=== PATIENT | female | born 2000 | race Two or more races ===

== ENCOUNTER 2020-08-03 09:47 | Emergency (ER) | payer SELFPAY ==
[~2020-08-03] VITALS: Ht 160 cm; Wt 60.0 kg
[~2020-08-03 09:47] MED LIST: DOCU-109 PO; IBUP-1060 PO; OXYC1TAB15 PO
[2020-08-03 10:15] VITALS: BP 119/55
[2020-08-03] MEDS ORDERED: IV NORMAL SALINE 1000ML BAG 1,000 ML IV SCH (12:30)
--- NOTE | 2020-08-03 12:40 | PHYS DOC ---
Past Medical History Past Medical History: No Pertinent History Past Surgical History: Smoking Status: Never Smoker Alcohol Use: Rarely General Adult EDM: Chief Complaint: RIB PAIN HPI: HPI: Patient is a 19 year old female who presents with left sided upper under the breast pain that is sharp and comes with breathing. She states sometimes it comes with movement. She denies injury. She denies shortness of breath at this time. She rates her pain a 7 out of 10. She states that she took pain medicine from her that she recently had in May and it did not help. This has been going on for the last couple of days. She is Welsh-speaking and a bilingual interpreter phone was used. She is on control. Patient denies shortness of breath, dizziness, headache, recent illness, cough, injury, abdominal pain, nausea, vomiting, diarrhea, fever, urinary symptoms, back pain. Review of Systems: Review of Systems: Constitutional: Denies fever or chills. [] Eyes: Denies change in visual acuity. [] HENT: Denies nasal congestion or sore throat. [] Respiratory: Denies cough or shortness of breath. [] Cardiovascular: +Left chest pain or denies edema. [] GI: Denies abdominal pain, nausea, vomiting, bloody stools or diarrhea. [] : Denies dysuria. [] Musculoskeletal: Denies back pain or joint pain. + Left ribs [] Integument: Denies rash. [] Neurologic: Denies headache, focal weakness or sensory changes. [] Endocrine: Denies polyuria or polydipsia. [] Lymphatic: Denies swollen glands. [] Psychiatric: Denies depression or anxiety. [] Heart Score: C/O Chest Pain: Yes HEART Score for Chest Pain: HEART Score for Chest Pain Response (Comments) Value History Slighlty/Non-Suspicious 0 ECG Normal 0 Age < 45 0 Risk Factors No Risk Factors 0 Troponin < Normal Limit 0 Total 0 Risk Factors: Risk Factors: DM, Current or recent (<one month) smoker, HTN, HLP, family history of CAD, obesity. Risk Scores: Score 0 - 3: 2.5% MACE over next 6 weeks - Discharge Home Score 4 - 6: 20.3% MACE over next 6 weeks - Admit for Clinical Observation Score 7 - 10: 72.7% MACE over next 6 weeks - Early Invasive Strategies Current Medications: Current Medications Medications (Trade) Dose Ordered Sig/Mari Start Time Stop Time Status Last Admin Dose Admin Ketorolac Tromethamine (Toradol 30mg Vial) 30 mg 1X ONCE 08/03/20 12:45 08/03/20 12:46 Sodium Chloride 1,000 ml @ 1,000 mls/hr Q1H 08/03/20 12:30 08/03/20 13:29 Allergies: Allergies: Allergies Coded Allergies Type Severity Reaction Last Updated Verified No Known Drug Allergies 05/18/20 No Physical Exam: PE: Constitutional: Well developed, well nourished, no acute distress, non-toxic appearance. [] HENT: Normocephalic, atraumatic, bilateral external ears normal, oropharynx moist, no oral exudates, nose normal. [] Eyes: PERRLA, EOMI, conjunctiva normal, no discharge. [] Neck: Normal range of motion, no tenderness, supple, no stridor. [] Cardiovascular:Heart rate regular rhythm, no murmur [] Lungs & Thorax: Bilateral breath sounds clear to auscultation. Left upper ribs [] Abdomen: Bowel sounds normal, soft, no tenderness, no masses, no pulsatile masses. [] Skin: Warm, dry, no erythema, no rash. [] Back: No tenderness, no CVA tenderness. [] Extremities: No tenderness, no cyanosis, no clubbing, ROM intact, no edema. [] Neurologic: Alert and oriented X 3, normal motor function, normal sensory function, no focal deficits noted. [] Psychologic: Affect normal, judgement normal, mood normal. [] Current Patient Data: Vital Signs: Vital Signs Date Time Temp Pulse Resp B/P (MAP) Pulse Ox O2 Delivery O2 Flow Rate FiO2 08/03/20 10:15 99.5 60 16 119/55 (53) 96 Room Air 99.5 EKG: EK and read by Dr. Quinones as his rhythm and no STEMI Radiology/Procedures: Radiology/Procedures: [] Impression: [facility] [address] [place] [address] IMAGING REPORT Signed PATIENT: JERED YAÑEZACCOUNT: [id number] : 2000 LOCATION: ER AGE: 19 SEX: F EXAM STATUS: REG ER ORD. PHYSICIAN: GEM LANTIGUA APRN REASON: left rib pain.pt denies injury or trauma. PROCEDURE: RIBS BILAT & PA CXR 4+V PA CHEST AND BILATERAL RIB SERIES Clinical Indication: Reason: left rib pain.pt denies injury or trauma. Comparison: None. Findings: The cardiomediastinal silhouette is normal. Pulmonary vasculature is normal. The lungs are clear. No pleural effusion or pneumothorax is seen. There is no acute displaced rib fracture. A nondisplaced or subtle rib fracture could be obscured. 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 IMPRESSION: 1. No acute cardiopulmonary process. 2. No acute displaced rib fracture. Electronically signed by: Raymundo Urrutia MD (08/03/2020 1:14 PM) [id number] DICTATED and SIGNED BY: RAYMUNDO URRUTIA MD DATE: 08/03/[id number] [facility] [address] [place] [address] IMAGING REPORT Signed PATIENT: JERED YAÑEZACCOUNT: [id number] : 2000 LOCATION: ER AGE: 19 SEX: F EXAM STATUS: REG ER ORD. PHYSICIAN: GEM LANTIGUA APRN REASON: abdnormal ct chest PROCEDURE: CT ABDOMEN PELVIS WO CONTRAST EXAM: CT ABDOMEN AND PELVIS WITHOUT CONTRAST INDICATION: Fluid or fat stranding in the left upper quadrant on CT chest COMPARISON: CTA chest same day TECHNIQUE: Helical CT imaging performed of the abdomen and pelvis without the use of intravenous contrast. Sagittal and coronal reformats were obtained. One or more of the following individualized dose reduction techniques were utilized for this examination: 1. Automated exposure control 2. Adjustment of the mA and/or kV according to patient size 3. Use of iterative reconstruction technique. FINDINGS: Lung bases: Heart is normal in size. Lung bases are clear. Liver: Normal noncontrast appearance of the liver. Gallbladder/Biliary Tree: Normal. Pancreas: Normal. Spleen: Spleen is normal in size. 1.4 cm splenule just inferior to the spleen. There is a small amount of fluid in the left paracolic gutter just inferior to the spleen but not directly surrounding the spleen. Adrenal Glands: Normal. Kidneys/Ureters/Bladder: Kidneys are normal in size. No hydronephrosis. There is contrast in the renal collecting systems, ureters, and bladder from prior CT. Ureters and bladder unremarkable. Reproductive Organs: Uterus is anteverted. Ovaries are unremarkable for age. Stomach, small bowel, and colon: Stomach, small bowel,, appendix, and colon are normal. Vasculature: Abdominal aorta is normal in caliber. Lymph Nodes: No lymphadenopathy. Peritoneum and retroperitoneum: Trace hemoperitoneum and fat stranding in the le ft paracolic gutter just inferior to the spleen, uncertain etiology. No other fluid in the abdomen. No free air. Bones: Transitional anatomy at the lumbosacral junction on the left. There is no acute osseous abnormality. IMPRESSION: Trace hemoperitoneum in the left upper quadrant extending along the left paracolic gutter just inferior to the spleen, of uncertain etiology. No oth er abnormality. Electronically signed by: Joi Frausto MD (08/03/2020 2:37 PM) [id number] DICTATED and SIGNED BY: JOI FRAUSTO MD DATE: 08/03/20 [id number] 0 Course & Med Decision Making: Course & Med Decision Making Pertinent Labs and Imaging studies reviewed. (See chart for details) See HPI. Alert and oriented x4. Ambulatory with a steady gait. Speaks in full clear sentences. The pain can be reproduced with me pushing on the upper left ribs under the breast area. She is not breast-feeding. No signs of mastitis. Abdomen is soft and nontender. No CVA tenderness. She is 96% on room air. Patient has hemoperitoneum per the CT abdomen pelvis. I have called Dr. Muñiz states he did the and he is unsure if this is from . Patient is hemodynamically stable. Dr. Quinones has also gone in and see the patient self. I have spoken to Dr. Whiting who states we could always admit the patient just for observation to make sure she is not bleeding acutely. Patient does not have any history of trauma, fall. She will be admitted to hospitalist for observation. [] Rafaela Disclaimer: Dragbennett Disclaimer: This electronic medical record was generated, in whole or in part, using a voice recognition dictation system. Departure Departure Impression: Primary Impression: Hemoperitoneum (nontraumatic) Disposition: 09 ADMITTED INPATIENT Admitting Physician: MAGY Condition: STABLE Referrals: NO PCP (PCP) GEM LANTIGUA [employer]AL [employer] August 03, 2020 12:40
[2020-08-03] MEDS ORDERED: KETOROLAC 30 MG/ML VIAL. IVP ONE (12:45)
[2020-08-03 13:03] LABS: BASO % 1 % (0-3); EOS % 1 % (0-3); HEMATOCRIT 42.6 % (36.0-47.0); HEMOGLOBIN 14.6 g/dL (12.0-15.5); LYMPH % 33 % (24-48); MEAN CORPUSCULAR HEMOGLOBIN 30 pg (25-35); MEAN CORPUSCULAR HGB CONC 34 g/dL (31-37); MEAN CORPUSCULAR VOLUME 89 fL (79-100); MONO # 0.3 x10^3/uL (0.0-1.1); MONO % 6 % (0-9); NEUT # 3.5 x10^3/uL (1.8-7.7); NEUT % 60 % (31-73); PLATELET COUNT 217 x10^3/uL (140-400); WHITE BLOOD COUNT 5.9 x10^3/uL (4.0-11.0)
[2020-08-03 13:08] LABS: BILIRUBIN,URINE NEGATIVE (NEG); CLARITY,URINE CLEAR; COLOR,URINE YELLOW; NITRITE,URINE NEGATIVE (NEG); PROTEIN,URINE NEGATIVE (NEG-TRACE); UROBILINOGEN,URINE 0.2 mg/dL (0.2 mg/dL)
[2020-08-03 13:13] LABS: CALCIUM 8.8 mg/dL (8.5-10.1); CREATININE 0.6 mg/dL (0.6-1.0); GFR 127.5; POTASSIUM 4.2 mmol/L (3.5-5.1)
--- NOTE | 2020-08-03 13:16 | RAD ---
PA CHEST AND BILATERAL RIB SERIES Clinical Indication: Reason: left rib pain.pt denies injury or trauma. Comparison: None. Findings: The cardiomediastinal silhouette is normal. Pulmonary vasculature is normal. The lungs are clear. No pleural effusion or pneumothorax is seen. There is no acute displaced rib fracture. A nondisplaced or subtle rib fracture could be obscured. 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 IMPRESSION: 1. No acute cardiopulmonary process. 2. No acute displaced rib fracture. Electronically signed by: Raymundo Urrutia MD (08/03/2020 1:14 PM) [id number]
[2020-08-03 13:21] LABS: ALBUMIN 4.2 g/dL (3.4-5.0); ALBUMIN/GLOBULIN RATIO 1.4 (1.0-1.7); AMORPHOUS SEDIMENT,UR PRESENT /HPF; TOTAL BILIRUBIN 0.3 mg/dL (0.2-1.0); TOTAL PROTEIN 7.2 g/dL (6.4-8.2)
[2020-08-03 13:22] LABS: BACTERIA,URINE MODERATE /HPF (0-FEW); RBC,URINE 0 /HPF (0-2)
[2020-08-03] MEDS ORDERED: IOHEXOL 350 MG/ML 100 ML VIAL. IV ONE (13:30)
[2020-08-03] MEDS ORDERED: CONTRAST GIVEN. MC PRN (13:30)
--- NOTE | 2020-08-03 13:59 | RAD ---
Study: CT CHEST WITH CONTRAST - PULMONARY ANGIOGRAM History: Pain with breathing Comparison: Chest and ribs radiograph same day Technique: Helical CT of the chest performed after the administration of 80 mL Isovue-370 intravenou s contrast and timed for angiographic evaluation of the pulmonary arteries per PE protocol. Coronal a nd sagittal 3D MIP reformations were obtained. One or more of the following individualized dose reduction techniques were utilized for this examinat ion: 1. Automated exposure control 2. Adjustment of the mA and/or kV according to patient size 3. Use of iterative reconstruction technique. Findings: Pulmonary Arteries: Contrast bolus is adequate. There is motion artifact. No acute pulmonary embolism . Heart/Systemic Vasculature: The heart is normal size. No pericardial effusion. Thoracic aorta is norm al in caliber. No aortic dissection. Mediastinum: No lymphadenopathy. Lungs: The lungs are clear. No pleural effusion or pneumothorax. Neck/Axilla/Body Wall: Visualized portion of thyroid gland is normal. There is no axillary lymphadeno yolanda. Breast tissue symmetric. Upper Abdomen: There is some complex fluid and fat stranding immediately inferior to the spleen, seen at the very edge of the imaging, incompletely imaged (image 132 of 132, series 3). Bones: No acute osseous abnormality. IMPRESSION: 1. No acute pulmonary embolism. 2. There appears to be some complex fluid and fat stranding at the very inferior tip of the spleen, incompletely imaged. Recommend CT of the abdomen and pelvis to further evaluate. 3. Results discussed by Dr. Frausto with the ER physician at 1:55 PM on 08/03/2020. Electronically signed by: Joi Frausto MD (08/03/2020 1:57 PM) [id number]
--- NOTE | 2020-08-03 14:39 | RAD ---
EXAM: CT ABDOMEN AND PELVIS WITHOUT CONTRAST INDICATION: Fluid or fat stranding in the left upper quadrant on CT chest COMPARISON: CTA chest same day TECHNIQUE: Helical CT imaging performed of the abdomen and pelvis without the use of intravenous cont rast. Sagittal and coronal reformats were obtained. One or more of the following individualized dose reduction techniques were utilized for this examinat ion: 1. Automated exposure control 2. Adjustment of the mA and/or kV according to patient size 3. Use of iterative reconstruction technique. FINDINGS: Lung bases: Heart is normal in size. Lung bases are clear. Liver: Normal noncontrast appearance of the liver. Gallbladder/Biliary Tree: Normal. Pancreas: Normal. Spleen: Spleen is normal in size. 1.4 cm splenule just inferior to the spleen. There is a small amoun t of fluid in the left paracolic gutter just inferior to the spleen but not directly surrounding the spleen. Adrenal Glands: Normal. Kidneys/Ureters/Bladder: Kidneys are normal in size. No hydronephrosis. There is contrast in the clarence l collecting systems, ureters, and bladder from prior CT. Ureters and bladder unremarkable. Reproductive Organs: Uterus is anteverted. Ovaries are unremarkable for age. Stomach, small bowel, and colon: Stomach, small bowel,, appendix, and colon are normal. Vasculature: Abdominal aorta is normal in caliber. Lymph Nodes: No lymphadenopathy. Peritoneum and retroperitoneum: Trace hemoperitoneum and fat stranding in the left paracolic gutter j ust inferior to the spleen, uncertain etiology. No other fluid in the abdomen. No free air. Bones: Transitional anatomy at the lumbosacral junction on the left. There is no acute osseous abnorm ality. IMPRESSION: Trace hemoperitoneum in the left upper quadrant extending along the left paracolic gutter just inferior to the spleen, of uncertain etiology. No other abnormality. Electronically signed by: Joi Frausto MD (08/03/2020 2:37 PM) [id number]
--- NOTE | 2020-08-03 15:35 | PDOC1 ---
History and Physical Date of Admission Date of Admission DATE: 08/03/20 TIME: 15:32 Identification/Chief Complaint Chief Complaint left lower chest wall pain since May 2020 History of Present Illness History of Present Illness 19 year old female post who presents with left sided upper under the breast pain that is sharp and comes with breathing. denies shortness of breath rates her pain a 7 out of 10. She states that she took pain medicine from her that she recently had in May and it did not help. This has been going on for the last couple of days. She is Albanian-speaking and a advisory services associate phone was used. She is on control. Patient denies shortness of breath, dizziness, headache, recent illness, cough, injury, abdominal pain, nausea, v omiting, diarrhea, fever, on CT ABDOMEN Peritoneum and retroperitoneum: Trace hemoperitoneum and fat stranding in the left paracolic gutter just inferior to the spleen, uncertain etiology. No free air. Intrauterine at 38 weeks and 6 days 05-18-20 post C/S Dr Muñiz Past Medical History Past Medical History Past Medical History Past Medical History: No Pertinent History Past Surgical History: Smoking Status: Never Smoker Alcohol Use: Rarely fhx ashd Cardiovascular: No pertinent hx GI: No pertinent hx Heme/Onc: No pertinent hx Psych: No pertinent hx Infectious disease: No pertinent hx Renal/: No pertinent hx Endocrine: No pertinent hx Dermatology: No pertinent hx Family History Family History: Hypertension Social History Smoke: No ALCOHOL: none Drugs: None Current Problem List Problem List Problems Medical Problems: (1) Hemoperitoneum (nontraumatic) Status: Acute Current Medications Current Medications Current Medications Sodium Chloride 1,000 ml @ 1,000 mls/hr Q1H IV Last administered on 08/03/20at 12:50; Start 08/03/20 at 12:30; Stop 08/03/20 at 13:29; Status DC Ketorolac Tromethamine (Toradol 30mg Vial) 30 mg 1X ONCE IVP Last administered on 08/03/20at 12:51; Start 08/03/20 at 12:45; Stop 08/03/20 at 12:46; Status DC Iohexol (Omnipaque 350 Mg/ml) 80 ml 1X ONCE IV Last administered on 08/03/20at 13:39; Start 08/03/20 at 13:30; Stop 08/03/20 at 13:31; Status DC Info (CONTRAST GIVEN -- Rx MONITORING) 1 each PRN DAILY PRN MC SEE COMMENTS; Start 08/03/20 at 13:30; Stop 08/05/20 at 13:29 Active Scripts Active Percocet 5-325 Mg Tablet (Oxycodone/Acetaminophen) 1 Each Tablet 1 Tab PO PRN Q8HRS PRN Ibuprofen 800 Mg Tablet 800 Mg PO PRN Q8HRS PRN Colace (Docusate Sodium) 100 Mg Capsule 100 Mg PO PRN BID PRN Allergies Allergies: Coded Allergies: No Known Drug Allergies (Unverified , 05/18/20) ROS General: No: Chills, Night Sweats, Fatigue, Malaise, Appetite, Other PSYCHOLOGICAL ROS: No: Anxiety, Behavioral Disorder, Concentration difficultie, Decreased libido, Depression, Disorientation, Hallucinations, Hostility, Irritablity, Memory difficulties, Mood Swings, Obsessive thoughts, Physical abuse, Sexual abuse, Sleep disturbances, Suicidal ideation, Other Eyes: No Blurry vision, No Decreased vision, No Double vision, No Dry eyes, No Excessive tearing, No Eye Pain, No Itchy Eyes, No Loss of vision, No Photophobia, No Scotomata, No Uses contacts, No Uses glasses, No Other HEENT: No: Heacaches, Visual Changes, Hearing change, Nasal congestion, Nasal discharge, Oral lesions, Sinus pain, Sore Throat, Epistaxis, Sneezing, Snoring, Tinnitus, Vertigo, Vocal changes, Other ALLERGY AND IMMUNOLOGY: No: Hives, Insect Bite Sensitivity, Itchy/Watery Eyes, Nasal Congestion, Post Nasal Drip, Seasonal Allergies, Other Hematological and Lymphatic: No: Bleeding Problems, Blood Clots, Blood Transfusions, Brusing, Night Sweats, Pallor, Swollen Lymph Nodes, Other ENDOCRINE: No: Breast Changes, Galactorrhea, Hair Pattern Changes, Hot Flashes, Malaise/lethargy, Mood Swings, Palpitations, Polydipsia/polyuria, Skin Changes, Temperature Intolerance, Unexpected Weight Changes, Other Breast: No New/Changing Breast Lumps, No Nipple changes, No Nipple discharge, No Other Respiratory: YES: Pleuritic Pain; No: Cough, Hemoptysis, Orthopnea, Shortness of breath, SOB with excertion, Sputum Changes, Stridor, Tachypnea, Wheezing, Other Cardiovascular: No Chest Pain, No Palpitations, No Orthopnea, No Paroxysmal Noc. Dyspnea, No Edema, No Lt Headedness, No Other Gastrointestinal: No Nausea, No Vomiting, No Abdominal Pain, No Diarrhea, No Constipation, No Melena, No Hematochezia, No Other Genitourinary: No Dysuria, No Frequency, No Incontinence, No Hematuria, No Retention, No Discharge, No Urgency, No Pain, No Flank Pain, No Other, No , No , No , No , No , No , No Musculoskeletal: No Gait Disturbance, No Joint Pain, No Joint Stiffness, No Joint Swelling, No Muscle Pain, No Muscular Weakness, No Pain In:, No Swelling In:, No Other Neurological: No Behavorial Changes, No Bowel/Bladder ControlChng, No Confusion, No Dizziness, No Gait Disturbance, No Headaches, No Impaired Coord/b alance, No Memory Loss, No Numbness/Tingling, No Seizures, No Speech Problems, No Tremors, No Visual Changes, No Weakness, No Other Skin: No Dry Skin, No Eczema, No Hair Changes, No Lumps, No Mole Changes, No Mottling, No Nail Changes, No Pruritus, No Rash, No Skin Lesion Changes, No Other, No Acne Physical Exam General: Alert, Oriented X3, Cooperative, No acute distress HEENT: PERRLA, EOMI, Mucous membr. moist/pink Lungs: Clear to auscultation, Normal air movement Heart: S1S2, RRR, no thrills, no rubs, no gallops, no murmurs, no jug vein distention Breasts: Not examined Abdomen: Normal bowel sounds, Soft Rectal Exam: not examined PELVIC: Examination not indicated Extremities: No clubbing, No cyanosis Neuro: Normal speech, Strength at 5/5 X4 ext, Cranial nerves 3-12 NL Psych/Mental Status: Mental status NL, Mood NL Vitals Vitals Vital Signs Date Time Temp Pulse Resp B/P (MAP) Pulse Ox O2 Delivery O2 Flow Rate FiO2 08/03/20 10:15 99.5 60 16 119/55 (76) 96 Room Air 99.5 Labs Labs Laboratory Tests Test 08/03/20 12:45 08/03/20 12:56 White Blood Count 5.9 x10^3/uL (4.0-11.0) Red Blood Count 4.80 x10^6/uL (3.50-5.40) Hemoglobin 14.6 g/dL (12.0-15.5) Hematocrit 42.6 % (36.0-47.0) Mean Corpuscular Volume 89 fL (79-100) Mean Corpuscular Hemoglobin 30 pg (25-35) Mean Corpuscular Hemoglobin Concent 34 g/dL (31-37) Red Cell Distribution Width 14.0 % (11.5-14.5) Platelet Count 217 x10^3/uL (140-400) Neutrophils (%) (Auto) 60 % (31-73) Lymphocytes (%) (Auto) 33 % (24-48) Monocytes (%) (Auto) 6 % (0-9) Eosinophils (%) (Auto) 1 % (0-3) Basophils (%) (Auto) 1 % (0-3) Neutrophils # (Auto) 3.5 x10^3/uL (1.8-7.7) Lymphocytes # (Auto) 2.0 x10^3/uL (1.0-4.8) Monocytes # (Auto) 0.3 x10^3/uL (0.0-1.1) Eosinophils # (Auto) 0.0 x10^3/uL (0.0-0.7) Basophils # (Auto) 0.0 x10^3/uL (0.0-0.2) Urine Collection Type Unknown Urine Color Yellow Urine Clarity Clear Urine pH 5.0 (<5.0-8.0) Urine Specific Benton 1.015 (1.000-1.030) Urine Protein Negative mg/dL (NEG-TRACE) Urine Glucose (UA) Negative mg/dL (NEG) Urine Ketones (Stick) Negative mg/dL (NEG) Urine Blood Negative (NEG) Urine Nitrite Negative (NEG) Urine Bilirubin Negative (NEG) Urine Urobilinogen Dipstick 0.2 mg/dL (0.2 mg/dL) Urine Leukocyte Esterase Negative (NEG) Urine RBC 0 /HPF (0-2) Urine WBC 1-4 /HPF (0-4) Urine Squamous Epithelial Cells Many /LPF Urine Amorphous Sediment Present /HPF Urine Bacteria Moderate /HPF (0-FEW) Urine Mucus Slight /LPF Sodium Level 144 mmol/L (136-145) Potassium Level 4.2 mmol/L (3.5-5.1) Chloride Level 106 mmol/L (98-107) Carbon Dioxide Level 24 mmol/L (21-32) Anion Gap 14 (6-14) Blood Urea Nitrogen 6 mg/dL (7-20) Creatinine 0.6 mg/dL (0.6-1.0) Estimated GFR (Cockcroft-Gault) 127.5 BUN/Creatinine Ratio 10 (6-20) Glucose Level 89 mg/dL (70-99) Calcium Level 8.8 mg/dL (8.5-10.1) Total Bilirubin 0.3 mg/dL (0.2-1.0) Aspartate Amino Transf (AST/SGOT) 16 U/L (15-37) Alanine Aminotransferase (ALT/SGPT) 25 U/L (14-59) Alkaline Phosphatase 86 U/L (46-116) Troponin I Quantitative < 0.017 ng/mL (0.000-0.055) Total Protein 7.2 g/dL (6.4-8.2) Albumin 4.2 g/dL (3.4-5.0) Albumin/Globulin Ratio 1.4 (1.0-1.7) Lipase 52 U/L (73-393) Bedside Urine HCG, Qualitative Hcg negative (Negative) Laboratory Tests Test 08/03/20 12:45 08/03/20 12:56 White Blood Count 5.9 x10^3/uL (4.0-11.0) Red Blood Count 4.80 x10^6/uL (3.50-5.40) Hemoglobin 14.6 g/dL (12.0-15.5) Hematocrit 42.6 % (36.0-47.0) Mean Corpuscular Volume 89 fL (79-100) Mean Corpuscular Hemoglobin 30 pg (25-35) Mean Corpuscular Hemoglobin Concent 34 g/dL (31-37) Red Cell Distribution Width 14.0 % (11.5-14.5) Platelet Count 217 x10^3/uL (140-400) Neutrophils (%) (Auto) 60 % (31-73) Lymphocytes (%) (Auto) 33 % (24-48) Monocytes (%) (Auto) 6 % (0-9) Eosinophils (%) (Auto) 1 % (0-3) Basophils (%) (Auto) 1 % (0-3) Neutrophils # (Auto) 3.5 x10^3/uL (1.8-7.7) Lymphocytes # (Auto) 2.0 x10^3/uL (1.0-4.8) Monocytes # (Auto) 0.3 x10^3/uL (0.0-1.1) Eosinophils # (Auto) 0.0 x10^3/uL (0.0-0.7) Basophils # (Auto) 0.0 x10^3/uL (0.0-0.2) Urine Collection Type Unknown Urine Color Yellow Urine Clarity Clear Urine pH 5.0 (<5.0-8.0) Urine Specific Benton 1.015 (1.000-1.030) Urine Protein Negative mg/dL (NEG-TRACE) Urine Glucose (UA) Negative mg/dL (NEG) Urine Ketones (Stick) Negative mg/dL (NEG) Urine Blood Negative (NEG) Urine Nitrite Negative (NEG) Urine Bilirubin Negative (NEG) Urine Urobilinogen Dipstick 0.2 mg/dL (0.2 mg/dL) Urine Leukocyte Esterase Negative (NEG) Urine RBC 0 /HPF (0-2) Urine WBC 1-4 /HPF (0-4) Urine Squamous Epithelial Cells Many /LPF Urine Amorphous Sediment Present /HPF Urine Bacteria Moderate /HPF (0-FEW) Urine Mucus Slight /LPF Sodium Level 144 mmol/L (136-145) Potassium Level 4.2 mmol/L (3.5-5.1) Chloride Level 106 mmol/L (98-107) Carbon Dioxide Level 24 mmol/L (21-32) Anion Gap 14 (6-14) Blood Urea Nitrogen 6 mg/dL (7-20) Creatinine 0.6 mg/dL (0.6-1.0) Estimated GFR (Cockcroft-Gault) 127.5 BUN/Creatinine Ratio 10 (6-20) Glucose Level 89 mg/dL (70-99) Calcium Level 8.8 mg/dL (8.5-10.1) Total Bilirubin 0.3 mg/dL (0.2-1.0) Aspartate Amino Transf (AST/SGOT) 16 U/L (15-37) Alanine Aminotransferase (ALT/SGPT) 25 U/L (14-59) Alkaline Phosphatase 86 U/L (46-116) Troponin I Quantitative < 0.017 ng/mL (0.000-0.055) Total Protein 7.2 g/dL (6.4-8.2) Albumin 4.2 g/dL (3.4-5.0) Albumin/Globulin Ratio 1.4 (1.0-1.7) Lipase 52 U/L (73-393) Bedside Urine HCG, Qualitative Hcg negative (Negative) Images Images PATIENT: JERED YAÑEZACCOUNT: [id number] : 2000 LOCATION: ER AGE: 19 SEX: F EXAM STATUS: REG ER ORD. PHYSICIAN: GEM LANTIGUA APRN REASON: pain with breathing PROCEDURE: CT ANGIOGRAPHY CHEST Study: CT CHEST WITH CONTRAST - PULMONARY ANGIOGRAM History: Pain with breathing Comparison: Chest and ribs radiograph same day Technique: Helical CT of the chest performed after the administration of 80 mL Isovue-370 intravenous contrast and timed for angiographic evaluation of the pulmonary arteries per PE protocol. Coronal and sagittal 3D MIP reformations were obtained. One or more of the following individualized dose reduction techniques were utilized for this examination: 1. Automated exposure control 2. Adjustment of the mA and/or kV according to patient size 3. Use of iterative reconstruction technique. Findings: Pulmonary Arteries: Contrast bolus is adequate. There is motion artifact. No acute pulmonary embolism. Heart/Systemic Vasculature: The heart is normal size. No pericardial effusion. Thoracic aorta is normal in caliber. No aortic dissection. Mediastinum: No lymphadenopathy. Lungs: The lungs are clear. No pleural effusion or pneumothorax. Neck/Axilla/Body Wall: Visualized portion of thyroid gland is normal. There is no axillary lymphadenopathy. Breast tissue symmetric. Upper Abdomen: There is some complex fluid and fat stranding immediately inferior to the spleen, seen at the very edge of the imaging, incompletely imaged (image 132 of 132, series 3). Bones: No acute osseous abnormality. IMPRESSION: 1. No acute pulmonary embolism. 2. There appears to be some complex fluid and fat stranding at the very inferior tip of the spleen, incompletely imaged. Recommend CT of the abdomen and pelvis to further evaluate. 3. Results discussed by Dr. Frausto with the ER physician at 1:55 PM on 08/03/2020. Electronically signed by: Joi Frausto MD (08/03/2020 1:57 PM) [id number] EXAM: CT ABDOMEN AND PELVIS WITHOUT CONTRAST INDICATION: Fluid or fat stranding in the left upper quadrant on CT chest COMPARISON: CTA chest same day TECHNIQUE: Helical CT imaging performed of the abdomen and pelvis without the use of intravenous contrast. Sagittal and coronal reformats were obtained. One or more of the following individualized dose reduction techniques were utilized for this examination: 1. Automated exposure control 2. Adjustment of the mA and/or kV according to patient size 3. Use of iterative reconstruction technique. FINDINGS: Lung bases: Heart is normal in size. Lung bases are clear. Liver: Normal noncontrast appearance of the liver. Gallbladder/Biliary Tree: Normal. Pancreas: Normal. Spleen: Spleen is normal in size. 1.4 cm splenule just inferior to the spleen. There is a small amount of fluid in the left paracolic gutter just inferior to the spleen but not directly surrounding the spleen. Adrenal Glands: Normal. Kidneys/Ureters/Bladder: Kidneys are normal in size. No hydronephrosis. There is contrast in the renal collecting systems, ureters, and bladder from prior CT. Ureters and bladder unremarkable. Reproductive Organs: Uterus is anteverted. Ovaries are unremarkable for age. Stomach, small bowel, and colon: Stomach, small bowel,, appendix, and colon are normal. Vasculature: Abdominal aorta is normal in caliber. Lymph Nodes: No lymphadenopathy. Peritoneum and retroperitoneum: Trace hemoperitoneum and fat stranding in the left paracolic gutter just inferior to the spleen, uncertain etiology. No other fluid in the abdomen. No free air. Bones: Transitional anatomy at the lumbosacral junction on the left. There is no acute osseous abnormality. IMPRESSION: Trace hemoperitoneum in the left upper quadrant extending along the left paracolic gutter just inferior to the spleen, of uncertain etiology. No o ther abnormality. Electronically signed by: Joi Frausto MD (08/03/2020 2:37 PM) [id number] DICTATED and SIGNED BY: JOI FRAUSTO MD VTE Prophylaxis Ordered VTE Prophylaxis Devices: Yes VTE Pharmacological Prophylaxi: Contraindicated Assessment/Plan Assessment/Plan impression Left lower chest wall pain since C/S DELIVERY May 2020, pleuritic Peritoneum and retroperitoneum: Trace hemoperitoneum and fat stranding in the left paracolic gutter just inferior to the spleen, uncertain etiology. No free air. Intrauterine at 38 weeks and 6 days BY c/s may [address] MUÑIZ Consult DR Whiting, general surgery H/H IN AM PAIN CONTROL D/W ER Justifications for Admission Other Justification EMMANUELLE RAMOS MD August 03, 2020 15:35
[2020-08-03] MEDS ORDERED: ALBUTEROL SULFATE 2.5 MG/3 ML NEBU. NEB PRN (16:00)
[2020-08-03] MEDS ORDERED: diphenhydrAMINE 50 MG/ML VIAL IVP PRN (16:00)
[2020-08-03] MEDS ORDERED: SODIUM PHOSPHATES 19/7GM 133 ML ENEMA. PR PRN (16:00)
[2020-08-03] MEDS ORDERED: ACETAMINOPHEN 325 MG TABLET. PO PRN (16:00)
[2020-08-03] MEDS ORDERED: 0.9 % SODIUM CHLORIDE 10 ML DISP.SYRIN. IV PRN (16:00)
[2020-08-03] MEDS ORDERED: DOCUSATE SODIUM 100 MG CAPSULE. PO PRN (16:00)
[2020-08-03] MEDS ORDERED: oxyCODONE/APAP 7.5/325 1 TAB TABLET PO PRN (16:00)
--- NOTE | 2020-08-03 19:30 | EKG ---
[facility] [address] [place] [address] Test Date: 2020-08-03 Test Time: 12:28:07 Pat Name: JERED YAÑEZ Department: Room: Gender: F [place] Winder: : 2000 Requested By: GEM LANTIGUA Order Number: [id number] Reading MD: Measurements Intervals Hawkins Rate: 73 P: 49 ME: 130 QRS: 35 QRSD: 72 T: 34 QT: 406 QTc: 451 Interpretive Statements SINUS ARRHYTHMIA NO SPECIFIC ECG ABNORMALITIES RI6.01 No previous ECG available for comparison
--- NOTE | 2020-08-04 11:21 | PDOC3 ---
Discharge Summary Date of Admission: August 03, 2020 Date of Discharge: August 03, 2020 Follow-Up: Other (júnior scott) Admitting Diagnosis comment: VTE Prophylaxis Ordered VTE Prophylaxis Devices: Yes VTE Pharmacological Prophylaxi: Contraindicated Assessment/Plan Assessment/Plan impression Left lower chest wall pain since C/S DELIVERY May 2020, pleuritic Peritoneum and retroperitoneum: Trace hemoperitoneum and fat stranding in the left paracolic gutter just inferior to the spleen, uncertain etiology. No free air. Intrauterine at 38 weeks and 6 days BY c/s may [address] MUÑIZ Consult DR Whiting, general surgery H/H IN AM PAIN CONTROL D/W ER DR júnior scott - pm Identification/Chief Complaint Chief Complaint left lower chest wall pain since May 2020 History of Present Illness History of Present Illness 19 year old female post who presents with left sided upper under the b reast pain that is sharp and comes with breathing. denies shortness of breath rates her pain a 7 out of 10. She states that she took pain medicine from her that she recently had in May and it did not help. This has been going on for the last couple of days. 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 She is on control. Patient denies shortness of breath, dizziness, headache, recent illness, cough, injury, abdominal pain, nausea, vomiting, diarrhea, fever, on CT ABDOMEN Peritoneum and retroperitoneum: Trace hemoperitoneum and fat stranding in the left paracolic gutter just inferior to the spleen, uncertain etiology. No free air. Intrauterine at 38 weeks and 6 days 05-18-20 post C/S Dr Muñiz Past Medical History Past Medical History Past Medical History Past Medical History: No Pertinent History Past Surgical History: Smoking Status: Never Smoker Alcohol Use: Rarely fhx ashd Cardiovascular: No pertinent hx GI: No pertinent hx Heme/Onc: No pertinent hx Psych: No pertinent hx Infectious disease: No pertinent hx Renal/: No pertinent hx Endocrine: No pertinent hx Dermatology: No pertinent hx Family History Family History: Hypertension Social History Smoke: No ALCOHOL: none Drugs: None Current Problem List Problem List Problems Medical Problems: (1) Hemoperitoneum (nontraumatic) Status: Acute Current Medications Current Medications Current Medications Sodium Chloride 1,000 ml @ 1,000 mls/hr Q1H IV Last administered on 08/03/20at 12:50; Start 08/03/20 at 12:30; Stop 08/03/20 at 13:29; Status DC Ketorolac Tromethamine (Toradol 30mg Vial) 30 mg 1X ONCE IVP Last administered on 08/03/20at 12:51; Start 08/03/20 at 12:45; Stop 08/03/20 at 12:46; Status DC Iohexol (Omnipaque 350 Mg/ml) 80 ml 1X ONCE IV Last administered on 08/03/20at 13:39; Start 08/03/20 at 13:30; Stop 08/03/20 at 13:31; Status DC Info (CONTRAST GIVEN -- Rx MONITORING) 1 each PRN DAILY PRN MC SEE COMMENTS; Start 08/03/20 at 13:30; Stop 08/05/20 at 13:29 Active Scripts Active Percocet 5-325 Mg Tablet (Oxycodone/Acetaminophen) 1 Each Tablet 1 Tab PO PRN Q8HRS PRN Ibuprofen 800 Mg Tablet 800 Mg PO PRN Q8HRS PRN Colace (Docusate Sodium) 100 Mg Capsule 100 Mg PO PRN BID PRN Allergies Allergies: Coded Allergies: No Known Drug Allergies (Unverified , 05/18/20) ROS General: No: Chills, Night Sweats, Fatigue, Malaise, Appetite, Other PSYCHOLOGICAL ROS: No: Anxiety, Behavioral Disorder, Concentration difficultie, Decreased libido, Depression, Disorientation, Hallucinations, Hostility, Irritablity, Memory difficulties, Mood Swings, Obsessive thoughts, Physical abuse, Sexual abuse, Sleep disturbances, Suicidal ideation, Other Eyes: No Blurry vision, No Decreased vision, No Double vision, No Dry eyes, No Excessive tearing, No Eye Pain, No Itchy Eyes, No Loss of vision, No Photophobia, No Scotomata, No Uses contacts, No Uses glasses, No Other HEENT: No: Heacaches, Visual Changes, Hearing change, Nasal congestion, Nasal discharge, Oral lesions, Sinus pain, Sore Throat, Epistaxis, Sneezing, Snoring, Tinnitus, Vertigo, Vocal changes, Other ALLERGY AND IMMUNOLOGY: No: Hives, Insect Bite Sensitivity, Itchy/Watery Eyes, Nasal Congestion, Post Nasal Drip, Seasonal Allergies, Other Hematological and Lymphatic: No: Bleeding Problems, Blood Clots, Blood Transfusions, Brusing, Night Sweats, Pallor, Swollen Lymph Nodes, Other ENDOCRINE: No: Breast Changes, Galactorrhea, Hair Pattern Changes, Hot Flashes, Malaise/lethargy, Mood Swings, Palpitations, Polydipsia/polyuria, Skin Changes, Temperature Intolerance, Unexpected Weight Changes, Other Breast: No New/Changing Breast Lumps, No Nipple changes, No Nipple discharge, No Other Respiratory: YES: Pleuritic Pain; No: Cough, Hemoptysis, Orthopnea, Shortness of breath, SOB with excertion, Sputum Changes, Stridor, Tachypnea, Wheezing, Other Cardiovascular: No Chest Pain, No Palpitations, No Orthopnea, No Paroxysmal Noc. Dyspnea, No Edema, No Lt Headedness, No Other Gastrointestinal: No Nausea, No Vomiting, No Abdominal Pain, No Diarrhea, No Constipation, No Melena, No Hematochezia, No Other Genitourinary: No Dysuria, No Frequency, No Incontinence, No Hematuria, No Retention, No Discharge, No Urgency, No Pain, No Flank Pain, No Other, No , No , No , No , No , No , No Musculoskeletal: No Gait Disturbance, No Joint Pain, No Joint Stiffness, No Joint Swelling, No Muscle Pain, No Muscular Weakness, No Pain In:, No Swelling In:, No Other Neurological: No Behavorial Changes, No Bowel/Bladder ControlChng, No Confusion, No Dizziness, No Gait Disturbance, No Headaches, No Impaired Coord/balance, No Memory Loss, No Numbness/Tingling, No Seizures, No Speech Problems, No Tremors, No Visual Changes, No Weakness, No Other Skin: No Dry Skin, No Eczema, No Hair Changes, No Lumps, No Mole Changes, No Mottling, No Nail Changes, No Pruritus, No Rash, No Skin Lesion Changes, No Other, No Acne Physical Exam General: Alert, Oriented X3, Cooperative, No acute distress HEENT: PERRLA, EOMI, Mucous membr. moist/pink Lungs: Clear to auscultation, Normal air movement Heart: S1S2, RRR, no thrills, no rubs, no gallops, no murmurs, no jug vein distention Breasts: Not examined Abdomen: Normal bowel sounds, Soft Rectal Exam: not examined PELVIC: Examination not indicated Extremities: No clubbing, No cyanosis Neuro: Normal speech, Strength at 5/5 X4 ext, Cranial nerves 3-12 NL Psych/Mental Status: Mental status NL, Mood NL Vitals Vitals FINAL DIAGNOSIS Problems Medical Problems: (1) Hemoperitoneum (nontraumatic) Status: Acute (2) Left against medical advice Status: Acute Brief Hospital Course Ms. Alcaraz is a 19 old [sex] who presented with [ ] CONDITION AT DISCHARGE: Comment (left ama) Discharge Medications Current Medications Sodium Chloride 1,000 ml @ 1,000 mls/hr Q1H IV Last administered on 08/03/20at 12:50; Start 08/03/20 at 12:30; Stop 08/03/20 at 13:29; Status DC Ketorolac Tromethamine (Toradol 30mg Vial) 30 mg 1X ONCE IVP Last administered on 08/03/20at 12:51; Start 08/03/20 at 12:45; Stop 08/03/20 at 12:46; Status DC Iohexol (Omnipaque 350 Mg/ml) 80 ml 1X ONCE IV Last administered on 08/03/20at 13:39; Start 08/03/20 at 13:30; Stop 08/03/20 at 13:31; Status DC Info (CONTRAST GIVEN -- Rx MONITORING) 1 each PRN DAILY PRN MC SEE COMMENTS; Start 08/03/20 at 13:30; Stop 08/05/20 at 13:29 Sodium Chloride (Normal Saline Flush) 3 ml QSHIFT PRN IV AFTER MEDS AND BLOOD DRAWS; Start 08/03/20 at 16:00 Acetaminophen (Tylenol) 650 mg PRN Q4HRS PRN PO TEMP OVER 100.4F OR MILD PAIN; Start 08/03/20 at 16:00 Sodium Monofluorophosphate (Fleet Adult) 133 ml PRN DAILY PRN [place] CONSTIPATION; Start 08/03/20 at 16:00 Diphenhydramine HCl (Benadryl) 25 mg PRN Q4HRS PRN IVP ITCHING; Start 08/03/20 at 16:00 Docusate Sodium (Colace) 100 mg PRN BID PRN PO HARD STOOLS; Start 08/03/20 at 16:00 Albuterol Sulfate (Ventolin Neb Soln) 2.5 mg PRN Q4HRS PRN NEB SHORTNESS OF BREATH; Start 08/03/20 at 16:00 Lorazepam (Ativan Inj) 2 mg PRN Q4HRS PRN IV ANXIETY / AGITATION; Start 08/03/20 at 16:00 Oxycodone/ Acetaminophen (Percocet 7.5/ 325) 1 tab PRN Q4HRS PRN PO SEVERE PAIN 7-10; Start 08/03/20 at 16:00 Active Scripts Active Percocet 5-325 Mg Tablet (Oxycodone/Acetaminophen) 1 Each Tablet 1 Tab PO PRN Q8HRS PRN Ibuprofen 800 Mg Tablet 800 Mg PO PRN Q8HRS PRN Colace (Docusate Sodium) 100 Mg Capsule 100 Mg PO PRN BID PRN Vital Signs Vital Signs Date Time Temp Pulse Resp B/P (MAP) Pulse Ox O2 Delivery O2 Flow Rate FiO2 08/03/20 10:15 99.5 60 16 119/55 (76) 96 Room Air 99.5 Labs Laboratory Tests Test 08/03/20 12:45 08/03/20 12:56 White Blood Count 5.9 x10^3/uL (4.0-11.0) Red Blood Count 4.80 x10^6/uL (3.50-5.40) Hemoglobin 14.6 g/dL (12.0-15.5) Hematocrit 42.6 % (36.0-47.0) Mean Corpuscular Volume 89 fL (79-100) Mean Corpuscular Hemoglobin 30 pg (25-35) Mean Corpuscular Hemoglobin Concent 34 g/dL (31-37) Red Cell Distribution Width 14.0 % (11.5-14.5) Platelet Count 217 x10^3/uL (140-400) Neutrophils (%) (Auto) 60 % (31-73) Lymphocytes (%) (Auto) 33 % (24-48) Monocytes (%) (Auto) 6 % (0-9) Eosinophils (%) (Auto) 1 % (0-3) Basophils (%) (Auto) 1 % (0-3) Neutrophils # (Auto) 3.5 x10^3/uL (1.8-7.7) Lymphocytes # (Auto) 2.0 x10^3/uL (1.0-4.8) Monocytes # (Auto) 0.3 x10^3/uL (0.0-1.1) Eosinophils # (Auto) 0.0 x10^3/uL (0.0-0.7) Basophils # (Auto) 0.0 x10^3/uL (0.0-0.2) Urine Collection Type Unknown Urine Color Yellow Urine Clarity Clear Urine pH 5.0 (<5.0-8.0) Urine Specific [place] 1.015 (1.000-1.030) Urine Protein Negative mg/dL (NEG-TRACE) Urine Glucose (UA) Negative mg/dL (NEG) Urine Ketones (Stick) Negative mg/dL (NEG) Urine Blood Negative (NEG) Urine Nitrite Negative (NEG) Urine Bilirubin Negative (NEG) Urine Urobilinogen Dipstick 0.2 mg/dL (0.2 mg/dL) Urine Leukocyte Esterase Negative (NEG) Urine RBC 0 /HPF (0-2) Urine WBC 1-4 /HPF (0-4) Urine Squamous Epithelial Cells Many /LPF Urine Amorphous Sediment Present /HPF Urine Bacteria Moderate /HPF (0-FEW) Urine Mucus Slight /LPF Sodium Level 144 mmol/L (136-145) Potassium Level 4.2 mmol/L (3.5-5.1) Chloride Level 106 mmol/L (98-107) Carbon Dioxide Level 24 mmol/L (21-32) Anion Gap 14 (6-14) Blood Urea Nitrogen 6 mg/dL (7-20) Creatinine 0.6 mg/dL (0.6-1.0) Estimated GFR (Cockcroft-Gault) 127.5 BUN/Creatinine Ratio 10 (6-20) Glucose Level 89 mg/dL (70-99) Calcium Level 8.8 mg/dL (8.5-10.1) Total Bilirubin 0.3 mg/dL (0.2-1.0) Aspartate Amino Transf (AST/SGOT) 16 U/L (15-37) Alanine Aminotransferase (ALT/SGPT) 25 U/L (14-59) Alkaline Phosphatase 86 U/L (46-116) Troponin I Quantitative < 0.017 ng/mL (0.000-0.055) Total Protein 7.2 g/dL (6.4-8.2) Albumin 4.2 g/dL (3.4-5.0) Albumin/Globulin Ratio 1.4 (1.0-1.7) Lipase 52 U/L (73-393) Bedside Urine HCG, Qualitative Hcg negative (Negative) Laboratory Tests Test 08/03/20 12:45 08/03/20 12:56 White Blood Count 5.9 x10^3/uL (4.0-11.0) Red Blood Count 4.80 x10^6/uL (3.50-5.40) Hemoglobin 14.6 g/dL (12.0-15.5) Hematocrit 42.6 % (36.0-47.0) Mean Corpuscular Volume 89 fL (79-100) Mean Corpuscular Hemoglobin 30 pg (25-35) Mean Corpuscular Hemoglobin Concent 34 g/dL (31-37) Red Cell Distribution Width 14.0 % (11.5-14.5) Platelet Count 217 x10^3/uL (140-400) Neutrophils (%) (Auto) 60 % (31-73) Lymphocytes (%) (Auto) 33 % (24-48) Monocytes (%) (Auto) 6 % (0-9) Eosinophils (%) (Auto) 1 % (0-3) Basophils (%) (Auto) 1 % (0-3) Neutrophils # (Auto) 3.5 x10^3/uL (1.8-7.7) Lymphocytes # (Auto) 2.0 x10^3/uL (1.0-4.8) Monocytes # (Auto) 0.3 x10^3/uL (0.0-1.1) Eosinophils # (Auto) 0.0 x10^3/uL (0.0-0.7) Basophils # (Auto) 0.0 x10^3/uL (0.0-0.2) Urine Collection Type Unknown Urine Color Yellow Urine Clarity Clear Urine pH 5.0 (<5.0-8.0) Urine Specific [place] 1.015 (1.000-1.030) Urine Protein Negative mg/dL (NEG-TRACE) Urine Glucose (UA) Negative mg/dL (NEG) Urine Ketones (Stick) Negative mg/dL (NEG) Urine Blood Negative (NEG) Urine Nitrite Negative (NEG) Urine Bilirubin Negative (NEG) Urine Urobilinogen Dipstick 0.2 mg/dL (0.2 mg/dL) Urine Leukocyte Esterase Negative (NEG) Urine RBC 0 /HPF (0-2) Urine WBC 1-4 /HPF (0-4) Urine Squamous Epithelial Cells Many /LPF Urine Amorphous Sediment Present /HPF Urine Bacteria Moderate /HPF (0-FEW) Urine Mucus Slight /LPF Sodium Level 144 mmol/L (136-145) Potassium Level 4.2 mmol/L (3.5-5.1) Chloride Level 106 mmol/L (98-107) Carbon Dioxide Level 24 mmol/L (21-32) Anion Gap 14 (6-14) Blood Urea Nitrogen 6 mg/dL (7-20) Creatinine 0.6 mg/dL (0.6-1.0) Estimated GFR (Cockcroft-Gault) 127.5 BUN/Creatinine Ratio 10 (6-20) Glucose Level 89 mg/dL (70-99) Calcium Level 8.8 mg/dL (8.5-10.1) Total Bilirubin 0.3 mg/dL (0.2-1.0) Aspartate Amino Transf (AST/SGOT) 16 U/L (15-37) Alanine Aminotransferase (ALT/SGPT) 25 U/L (14-59) Alkaline Phosphatase 86 U/L (46-116) Troponin I Quantitative < 0.017 ng/mL (0.000-0.055) Total Protein 7.2 g/dL (6.4-8.2) Albumin 4.2 g/dL (3.4-5.0) Albumin/Globulin Ratio 1.4 (1.0-1.7) Lipase 52 U/L (73-393) Bedside Urine HCG, Qualitative Hcg negative (Negative) Allergies Allergies Coded Allergies Type Severity Reaction Last Updated Verified No Known Drug Allergies 05/18/20 No Disposition/Orders: Other (left ama) Justicifation of Admission Dx: Justifications for Admission: Justification of Admission Dx: No Comments: left EMMANUELLE HYLTON MD August 04, 2020 11:21
== END 2020-08-03 17:50 | disposition left against medical advice (07) ==
LOC: ER 09:47 → ED HOLD 15:28 → UNDOADMOB 15:28 → ED HOLD 17:50
DX: K66.1 Hemoperitoneum (principal)
CPT/HCPCS: 36415; 71111; 71275; 74176; 80053; 81001; 81025; 83690; 84484; 85025; 87086; 93005; 96361; 96374; 99285; J1885; J7030; Q9967